=== PATIENT | male | born 1960 ===

== ENCOUNTER 2020-07-13 11:10 | Day surgery (SDC) | payer OTHER | END 2020-07-13 16:00 | disposition home or self-care (01) | LOC: AMB-ENDOS 11:10 | PROVIDERS: ATTEND Colon & Rectal Surgery | DX: D12.5 Benign neoplasm of sigmoid colon (principal); D12.8 Benign neoplasm of rectum; K64.1 Second degree hemorrhoids; Z20.822 Contact with and (suspected) exposure to COVID-19; Z12.11 Encounter for screening for malignant neoplasm of colon ==